=== PATIENT | male | born 1960 | race Caucasian/White ===

== ENCOUNTER 2017-12-18 01:36 | Emergency (ER) | payer SELFPAY ==
[~2017-12-18] VITALS: Ht 182.9 cm; Wt 73.9 kg
[~2017-12-18 01:36] MED LIST: ACDPT PO; ASPI-892 PO; IBUP200C PO; MTF500T PO; OXYM30MI NS
[2017-12-18 01:45] VITALS: BP 150/92
[2017-12-18] MEDS ORDERED: GABA-488 PO (01:51)
[2017-12-18] MEDS ORDERED: PREG25CA PO (01:51)
[2017-12-18] MEDS ORDERED: AMOX400S9 PO (01:51)
== END 2017-12-18 02:28 | disposition left against medical advice (07) ==
LOC: EDUNIT# 01:36 → ER 01:41
DX: K08.89 Other specified disorders of teeth and supporting structures (principal)
CPT/HCPCS: 99282

== ENCOUNTER → 2018-04-04 | Outpatient (CLI) | payer SELFPAY ==
[~2018-04-04] MED LIST changes: +AMOX400S9 PO; +CATHETER FLUSH 10 ML SYR IV PRN; +GABA-488 PO; +IOHEXOL 350 MG/ML 150 ML (OMNIPAQUE 350) VIAL IV ONE; +NS 250 ML (IVPB) BAG IV ONE; +PREG25CA PO
--- NOTE | 2018-04-05 18:56 | Diagnostic Imaging Report ---
PROCEDURE: CT angiography of the chest with and without contrast. TECHNIQUE: Noncontrast CT of the chest was performed. Subsequently, after intravenous administration of contrast, thin section axial CT angiography of the chest was performed. 2D MIP reconstructions were made. INDICATION: Difficulty swallowing and shortness of breath. COMPARISON: Comparison is made with a chest radiograph from December 22, 2014. FINDINGS: There is adequate opacification of the pulmonary arteries for diagnostic evaluation. There are no filling defects within the pulmonary arteries to suggest embolism. The main pulmonary artery is normal in size. There are mild atherosclerotic calcifications present within the aorta. There is no dissection. Ascending aorta demonstrates ectasia and measures up to 4.3 cm. The arch and descending thoracic aorta are normal in caliber. Heart size appears normal. There is no pericardial effusion. There are no focal pulmonary infiltrates. There is no alveolar consolidation. There is no effusion or pneumothorax. No pulmonary nodule or mass demonstrated. There are no abnormally enlarged mediastinal or hilar lymph nodes. The axillae are unremarkable. The esophagus demonstrates no focal abnormality. The visualized portion of the upper abdomen demonstrates no acute process. There are degenerative endplate changes present within the thoracic spine, but there are no findings of an acute or suspicious osseous abnormality. IMPRESSION: 1. No CT angiographic evidence of pulmonary embolism. 2. Ascending aortic ectasia measuring up to 4.3 cm in diameter. There is no dissection. Mild aortic atherosclerosis noted. 3. Heart size appears normal. 4. Lungs appear clear. 5. No acute upper abdominal abnormality. 6. Thoracic degenerative endplate changes without acute or suspicious osseous abnormality. 7. The esophagus appears unremarkable by CT. Dictated by: Dictated on workstation # [id number]
== END ==
LOC: RAD 15:03
PROVIDERS: ATTEND Pediatrics
DX: I77.810 Thoracic aortic ectasia (principal); I70.0 Atherosclerosis of aorta; M47.814 Spondylosis without myelopathy or radiculopathy, thoracic region; R13.10 Dysphagia, unspecified
CPT/HCPCS: 71275

== ENCOUNTER 2019-08-05 11:06 | Emergency (ER) | payer SELFPAY ==
[~2019-08-05] VITALS: Ht 182 cm; Wt 70.0 kg
[~2019-08-05 11:06] MED LIST changes: -CATHETER FLUSH 10 ML SYR IV PRN; -IOHEXOL 350 MG/ML 150 ML (OMNIPAQUE 350) VIAL IV ONE; -NS 250 ML (IVPB) BAG IV ONE
[2019-08-05] MEDS ORDERED: NS IV 1000 ML 1,000 ML ONE (11:12)
[2019-08-05] MEDS ORDERED: KETOROLAC 30 MG/ML VIAL ONE (11:12)
[2019-08-05] MEDS ORDERED: HYDR-4226 PO (11:24)
[2019-08-05] MEDS ORDERED: IBUP-1780 PO (11:24)
[2019-08-05] MEDS ORDERED: TMSL.4C PO (11:24)
--- NOTE | 2019-08-05 11:24 | ED GU-Male ---
General Stated Complaint: ABD PAIN Source: patient Exam Limitations: no limitations History of Present Illness Date Seen by Provider: Aug 05, 2019 Time Seen by Provider: 11:20 Initial Comments To ER with reports of left lower abdominal pain sudden in onset sharp in nature that radiates into the testicle. This occurred just prior to arrival. No history of this. He has the urge to urinate but unable to do so. No vomiting no fever no chills. Pain is varying in intensity, currently 7 out of 10 but at one point it was 10 out of 10. Timing/Duration: constant Severity/Quality: moderate, sharp Location: LLQ, groin, scrotal Radiation: none Activities at Onset: none Prior Genitourinary Problems: none Associated Symptoms: dysuria Allergies and Home Medications Allergies Coded Allergies: No Known Drug Allergies (Unverified , 12/22/14) Home Medications Acetaminophen/Diphenhydramine 1 Ea Tab, 1 TAB PO HS, (Reported) Aspirin 81 Mg Tabec, 81 MG PO DAILY, (Reported) Hydrocodone/Acetaminophen 1 Each Tablet, 1 TAB PO Q4-6HR Prescribed by: IZAIAH WAY on 08/05/19 1124 Ibuprofen 200 Mg Capsule, 200 MG PO BID, (Reported) Ibuprofen 800 Mg Tablet, 800 MG PO Q8H PRN for PAIN Prescribed by: IZAIAH WAY on 08/05/19 1124 Metformin Hcl 500 Mg Tablet, 1 EACH PO BID WITH MEALS Prescribed by: RYANN ROJAS on 12/23/14 1251 Tamsulosin HCl 0.4 Mg Cap, 0.4 MG PO DAILY Prescribed by: IZAIAH WAY on 08/05/19 1124 Patient Home Medication List Home Medication List Reviewed: Yes Review of Systems Review of Systems Constitutional: see HPI EENTM: see HPI Respiratory: no symptoms reported Cardiovascular: no symptoms reported Genitourinary: see HPI Musculoskeletal: no symptoms reported Skin: no symptoms reported Psychiatric/Neurological: No Symptoms Reported Past Qoxiqdw-Dcnvop-Rljujq Hx Patient Social History Type Used: Cigarettes 2nd Hand Smoke Exposure: Yes Recent Foreign Travel: No Contact w/Someone Who Travel: No Recent Hopitalizations: No Immunizations Up To Date Tetanus Booster (TDap): Unknown Seasonal Allergies Seasonal Allergies: No Past Medical History Surgeries: No Respiratory: No Cardiac: No Neurological: No Reproductive Disorders: Yes (ERECTILE DYSFUNCTION) Genitourinary: No Gastrointestinal: No Musculoskeletal: Yes Chronic Back Pain Endocrine: Yes Diabetes, Non-Insulin dep HEENT: No Cancer: No Psychosocial: No Integumentary: No Family Medical History Cardiovascular disease Diabetes mellitus Myocardial infarction Respiratory disorder CAD Under 55 Years Old Physical Exam Vital Signs Vital Signs - First Documented 08/05/19 11:08 Temp 36.3 Pulse 90 Resp 18 B/P (MAP) 142/98 (113) Pulse Ox 98 Capillary Refill : Height, Weight, BMI Height: 6'0" Weight: 163lbs. 0oz. [id number]; 22.87 BMI Method:Stated General Appearance: WD/WN, mild distress HEENT: PERRL/EOMI, normal ENT inspection Neck: non-tender, full range of motion Respiratory: no respiratory distress, no accessory muscle use Gastrointestinal: normal bowel sounds, non tender, soft Extremities: normal range of motion, non-tender Neurologic/Psychiatric: alert, normal mood/affect Skin: normal color, warm/dry Progress/Results/Core Measures Suspected Sepsis SIRS Temperature: Pulse: Respiratory Rate: Laboratory Tests 08/05/19 11:10: White Blood Count 8.0 Blood Pressure / Mean: Laboratory Tests 08/05/19 11:10: Creatinine 0.85, Platelet Count 289 Results/Orders Lab Results Laboratory Tests Test 08/05/19 11:10 Range/Units White Blood Count 8.0 4.3-11.0 10^3/uL Red Blood Count 4.83 4.35-5.85 10^6/uL Hemoglobin 14.6 13.3-17.7 G/DL Hematocrit 44 40-54 % Mean Corpuscular Volume 91 80-99 FL Mean Corpuscular Hemoglobin 30 25-34 PG Mean Corpuscular Hemoglobin Concent 33 32-36 G/DL Red Cell Distribution Width 12.7 10.0-14.5 % Platelet Count 289 130-400 10^3/uL Mean Platelet Volume 9.5 7.4-10.4 FL Neutrophils (%) (Auto) 61 42-75 % Lymphocytes (%) (Auto) 26 12-44 % Monocytes (%) (Auto) 11 0-12 % Eosinophils (%) (Auto) 2 0-10 % Basophils (%) (Auto) 0 0-10 % Neutrophils # (Auto) 4.8 1.8-7.8 X 10^3 Lymphocytes # (Auto) 2.1 1.0-4.0 X 10^3 Monocytes # (Auto) 0.9 0.0-1.0 X 10^3 Eosinophils # (Auto) 0.2 0.0-0.3 10^3/uL Basophils # (Auto) 0.0 0.0-0.1 10^3/uL Sodium Level 140 135-145 MMOL/L Potassium Level 4.2 3.6-5.0 MMOL/L Chloride Level 102 98-107 MMOL/L Carbon Dioxide Level 22 21-32 MMOL/L Anion Gap 16 H 5-14 MMOL/L Blood Urea Nitrogen 9 7-18 MG/DL Creatinine 0.85 0.60-1.30 MG/DL Estimat Glomerular Filtration Rate > 60 BUN/Creatinine Ratio 11 Glucose Level 139 H 70-105 MG/DL Calcium Level 10.1 8.5-10.1 MG/DL My Orders Orders - IZAIAH WAY APRN Cbc With Automated Diff (08/05/19 11:19) Basic Metabolic Panel (08/05/19 11:19) Ua Culture If Indicated (08/05/19 11:19) Ed Iv/Invasive Line Start (08/05/19 11:19) Ct Abd/Pelvis Wo(Kidney Stone) (08/05/19 11:19) Abdomen/Kub 1view (08/05/19 11:24) Medications Given in ED Current Medications Medications Dose Ordered Sig/William Route Start Time Stop Time Status Last Admin Dose Admin Ketorolac Tromethamine 30 mg STK-MED ONCE .ROUTE 08/05/19 11:12 08/05/19 11:16 DC 08/05/19 11:19 30 MG Sodium Chloride 1,000 ml @ ud STK-MED ONCE .ROUTE 08/05/19 11:12 08/05/19 11:17 DC 08/05/19 11:18 1,000 MLS/HR Vital Signs/I&O 08/05/19 11:08 Temp 36.3 Pulse 90 Resp 18 B/P (MAP) 142/98 (113) Pulse Ox 98 Capillary Refill : Departure Communication (Admissions) NAME: J[facility] REC#: [id number] PT STATUS: REG ER : 1960 PHYSICIAN: IZAIAH WAY APRN ADMIT DATE: 08/05/19/ER Draft Date of Exam:08/05/19 CT ABD/PELVIS WO(KIDNEY STONE) EXAMINATION: CT Abdomen Pelvis without contrast. TECHNIQUE: Multiple contiguous axial images were obtained through the abdomen and pelvis without the use of intravenous contrast. All CT scans use one or more of the following dose optimizing techniques: automated exposure control, MA and/or KvP adjustment based on a patient size and exam type, or iterative reconstruction. HISTORY: Left lower quadrant pain. COMPARISON: None available. FINDINGS: Limited views of the lower thorax show coronary artery calcifications. The liver is normal without focal lesion. There is no biliary ductal dilation. Gallbladder is normal. Pancreas is normal. Spleen is normal. Adrenal glands are normal. The kidneys are normal. There is no hydronephrosis. There is a 3 mm calcification dependently in the urinary bladder which may represent a recently passed stone. No renal or ureteral stones are seen. There are no dilated loops of large or small bowel. No obstruction or inflammation. No free fluid or air. No abdominal or pelvic lymphadenopathy. Aorta is normal in caliber without aneurysm. There are no suspicious osseous lesions. IMPRESSION: 1. Calcification dependently in the urinary bladder measuring 3 mm which likely represents a recently passed stone. No renal or ureteral calculi are present. Dictated on workstation # [id number] Dict: 08/05/19 1141 Trans: 08/05/19 1145 [facility] [id number] Interpreted by: SUSANNE CISSE MD Electronically signed by: Impression Primary Impression: Left ureteral stone Disposition: HOME, SELF-CARE Condition: Stable Departure-Patient Inst. Decision time for Depature: 11:22 Ref[place]: [facility] [place] [facility] [place] Primary Care Physician JESSIKA DOBBS MD Patient Instructions: How to Strain Your Urine, Kidney Stones (DC) Add. Discharge Instructions: 1. If you fail to pass this within the next few days, call Dr. Dobbs on Wednesday to make an appointment to be seen. He may need to intervene to help you pass the stone. In the meantime medication as directed, return to ER for intolerable pain, high fevers or other concerns. Scripts Tamsulosin HCl (Flomax) 0.4 Mg Cap 0.4 MG PO DAILY, #10 CAP Prov: IZAIAH WAY HAT CUTTER 08/05/19 Hydrocodone/Acetaminophen ([place] 5-325 Tablet) 1 Each Tablet 1 TAB PO Q4-6HR for Pain MDD 10 TABS for 7 Days, #20 TAB Prov: IZAIAH WAY APRN 08/05/19 Ibuprofen (Ibuprofen) 800 Mg Tablet 800 MG PO Q8H PRN for PAIN, #30 TAB 0 Refills Prov: IZAIAH WAY APRN 08/05/[address] APRN Aug 05, 2019 11:24
[2019-08-05 11:25] LABS: BASOPHILS % (AUTO) 0 % (0-10); EOSINOPHILS # (AUTO) 0.2 10^3/uL (0.0-0.3); EOSINOPHILS % (AUTO) 2 % (0-10); HEMATOCRIT 44 % (40-54); HEMOGLOBIN 14.6 G/DL (13.3-17.7); LYMPHOCYTES # (AUTO) 2.1 X 10^3 (1.0-4.0); LYMPHOCYTES % (AUTO) 26 % (12-44); MEAN CORPUSCULAR HEMOGLOBIN 30 PG (25-34); MEAN CORPUSCULAR HGB CONC 33 G/DL (32-36); MEAN CORPUSCULAR VOLUME 91 FL (80-99); MEAN PLATELET VOLUME 9.5 FL (7.4-10.4); MONOCYTES # (AUTO) 0.9 X 10^3 (0.0-1.0); MONOCYTES % (AUTO) 11 % (0-12); NEUTROPHILS # (AUTO) 4.8 X 10^3 (1.8-7.8); NEUTROPHILS % (AUTO) 61 % (42-75); PLATELET COUNT 289 10^3/uL (130-400); RED CELL DISTRIBUTION WIDTH 12.7 % (10.0-14.5)
[2019-08-05 11:38] LABS: BUN/CREATININE RATIO 11; CALCIUM 10.1 MG/DL (8.5-10.1); CARBON DIOXIDE 22 MMOL/L (21-32); CHLORIDE 102 MMOL/L (98-107); CREATININE SERUM 0.85 MG/DL (0.60-1.30); GFR ESTIMATED > 60; GLUCOSE 139 MG/DL (70-105); POTASSIUM 4.2 MMOL/L (3.6-5.0); SODIUM 140 MMOL/L (135-145)
--- NOTE | 2019-08-05 11:42 | Diagnostic Imaging Report ---
INDICATION: Left lower quadrant pain. Time of exam 11:38 AM Bowel gas pattern is unremarkable. No definite free air or pathological secretions are seen. IMPRESSION: No acute feature identified. Dictated by: Dictated on workstation # [id number]
--- NOTE | 2019-08-05 11:45 | Diagnostic Imaging Report ---
EXAMINATION: CT Abdomen Pelvis without contrast. TECHNIQUE: Multiple contiguous axial images were obtained through the abdomen and pelvis without the use of intravenous contrast. All CT scans use one or more of the following dose optimizing techniques: automated exposure control, MA and/or KvP adjustment based on a patient size and exam type, or iterative reconstruction. HISTORY: Left lower quadrant pain. COMPARISON: None available. FINDINGS: Limited views of the lower thorax show coronary artery calcifications. The liver is normal without focal lesion. There is no biliary ductal dilation. Gallbladder is normal. Pancreas is normal. Spleen is normal. Adrenal glands are normal. The kidneys are normal. There is no hydronephrosis. There is a 3 mm calcification dependently in the urinary bladder which may represent a recently passed stone. No renal or ureteral stones are seen. There are no dilated loops of large or small bowel. No obstruction or inflammation. No free fluid or air. No abdominal or pelvic lymphadenopathy. Aorta is normal in caliber without aneurysm. There are no suspicious osseous lesions. IMPRESSION: 1. Calcification dependently in the urinary bladder measuring 3 mm which likely represents a recently passed stone. No renal or ureteral calculi are present. Dictated by: Dictated on workstation # [id number]
[2019-08-05 12:00] LABS: BILIRUBIN,URINE NEGATIVE (NEGATIVE); CLARITY,URINE SL CLOUDY; COLOR,URINE DARK YELLOW; GLUCOSE, URINE (UA) NEGATIVE (NEGATIVE); KETONES,URINE NEGATIVE (NEGATIVE); LEUKOCYTE ESTERASE ,URINE NEGATIVE (NEGATIVE); NITRITE,URINE NEGATIVE (NEGATIVE); PH,URINE 5.5 (5-9); PROTEIN,URINE TRACE (NEGATIVE)
[2019-08-05 12:09] VITALS: BP 142/98
[2019-08-05 12:13] LABS: BACTERIA,URINE TRACE /HPF; WBC,URINE RARE /HPF
[2019-08-05 12:14] LABS: SQUAMOUS EPITHELIAL CELL,UR 0-2 /HPF
== END 2019-08-05 12:09 | disposition home or self-care (01) ==
LOC: EDUNIT# 11:06 → ER 11:07
DX: N13.2 Hydronephrosis with renal and ureteral calculous obstruction (principal); E11.9 Type 2 diabetes mellitus without complications; Z79.82 Long term (current) use of aspirin; Z79.84 Long term (current) use of oral hypoglycemic drugs; Z77.22 Contact with and (suspected) exposure to environmental tobacco smoke (acute) (chronic); Z82.49 Family history of ischemic heart disease and other diseases of the circulatory system
CPT/HCPCS: 36415; 74018; 74176; 80048; 81000; 85025

== ENCOUNTER 2022-06-25 12:43 | Emergency (ER) | payer OTHER ==
[~2022-06-25] VITALS: Ht 182 cm; Wt 73.0 kg
[~2022-06-25 12:43] MED LIST changes: +HYDR-4226 PO; +IBUP-1780 PO; +TMSL.4C PO
[2022-06-25] MEDS ORDERED: TETANUS,DIPTH,PERTUSS P/F (BOOSTRIX) 0.5 ML VIAL IM ONE (13:00)
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
[2022-06-25] MEDS ORDERED: fentaNYL INJ 100 MCG/2 ML AMP IM ONE (13:15)
[2022-06-25] MEDS ORDERED: ACHD5005 PO (13:29)
[2022-06-25] MEDS ORDERED: ACETAMINOPHEN 500 MG TAB (TYLENOL) PO ONE (13:30)
[2022-06-25] MEDS ORDERED: BACITRACIN OINTMENT 28 GM TUBE TOP SCH (13:30)
[2022-06-25 13:50] VITALS: BP 139/90
== END 2022-06-25 13:53 | disposition home or self-care (01) ==
LOC: EDUNIT# 12:43 → ER 12:46
DX: T23.242A Burn of second degree of multiple left fingers (nail), including thumb, initial encounter (principal); T31.0 Burns involving less than 10% of body surface; E11.9 Type 2 diabetes mellitus without complications; F17.210 Nicotine dependence, cigarettes, uncomplicated; Z79.84 Long term (current) use of oral hypoglycemic drugs; Z23 Encounter for immunization
CPT/HCPCS: 90715; 99284

== ENCOUNTER 2022-09-16 06:06 | Outpatient (CLI) | payer OTHER ==
[~2022-09-16] VITALS: Ht 182.9 cm; Wt 72.6 kg
[~2022-09-16 06:06] MED LIST changes: +ACHD5005 PO
[2022-09-16] MEDS ORDERED: CHOL1LIQ MC (12:28)
[2022-09-16] MEDS ORDERED: ATOR10TA PO (12:28)
== END 2022-09-16 12:36 ==
LOC: PREOP 06:06
PROVIDERS: ATTEND Surgery
DX: Z01.818 Encounter for other preprocedural examination (principal)

== ENCOUNTER 2022-09-29 09:26 | Day surgery (SDC) | payer OTHER ==
[~2022-09-29] VITALS: Ht 182.9 cm; Wt 72.6 kg
[~2022-09-29 09:26] MED LIST changes: +ATOR10TA PO; +CHOL1LIQ MC
[2022-09-29] MEDS ORDERED: LACTATED RINGERS 1,000 ML IV STA (09:29)
[2022-09-29 09:47] VITALS: BP 134/93
--- NOTE | 2022-09-29 10:27 | Discharge Inst-Simple/Standard ---
Discharge Inst-Standard Patient Instructions/Follow Up Plan of Care/Instructions/FU: Dayne in 10yrs unless family history of colon cancer then 5yrs. If any issues be seen at that time Activity as Tolerated: Yes Discharge Diet: Regular Diet (high fiber) ABRIL VIVEROS DO Sep 29, 2022 10:27
[2022-09-29] MEDS ORDERED: PROPOFOL INJECTION 50 ML IV ONE (10:28)
--- NOTE | 2022-09-29 10:28 | Progress Note-Post Operative ---
Post-Operative Progess Note Surgeon (s)/Residential Sales Executive (s) Surgeon ABRIL VIVEROS DO Residential Sales Executive: na Pre-Operative Diagnosis screening colonoscopy Post-Operative Diagnosis Diverticulosis Procedure & Operative Findings Date of Procedure 09/29/22 Procedure Performed/Findings Colonoscopy Anesthesia Type per wallpaper hanger Estimated Blood Loss Estimated blood loss (mL): none Specimens/Packing Specimens Removed none ABRIL VIVEROS DO Sep 29, 2022 10:28
[2022-09-29 10:31] VITALS: BP 103/65
[2022-09-29 10:36] VITALS: BP 108/70
[2022-09-29 10:41] VITALS: BP 118/1
[2022-09-29 10:45] VITALS: BP 111/73
[2022-09-29 11:10] VITALS: BP 111/73
--- NOTE | 2022-09-29 12:16 | Anesthesia-General Post-Op ---
MAC Patient Condition Mental Status/LOC: Same as Preop Cardiovascular: Satisfactory Nausea/Vomiting: Absent Respiratory: Satisfactory Pain: Controlled Complications: Absent Post Op Complications Complications None Follow Up Care/Instructions Patient Instructions None needed. Anesthesiology Discharge Order Discharge Order Patient is doing well, no complaints, stable vital signs, no apparent adverse anesthesia problems. No complications reported per nursing. ALEXANDRE MATIAS CRNA Sep 29, 2022 12:16
--- NOTE | 2022-09-29 15:34 | OPERATIVE REPORT ---
DATE OF SERVICE: 09/29/2022 PREOPERATIVE DIAGNOSIS: Screening colonoscopy. POSTOPERATIVE DIAGNOSIS: Diverticulosis. PROCEDURE: Colonoscopy. SURGEON: Abril Oscar DO ANESTHESIA: Per HOGSHEAD INSPECTOR. ESTIMATED BLOOD LOSS: None. COMPLICATIONS: None. INDICATIONS: The patient is a 62-year-old male, needing screening colonoscopy. He understands risks and benefits of procedure and wished to proceed. Consent was signed and on chart. DESCRIPTION OF PROCEDURE: The patient was taken to endoscopy suite, placed in left lateral recumbent position. Timeout was performed. Digital rectal exam was performed. No palpable polyps, masses or ulcerations. Scope was inserted in the rectum, advanced all the way to the cecum with minimal difficulty. Prep was adequate. Scope was retracted back. No polyps, masses or ulcerations in the cecum, ascending, transverse, descending and sigmoid colon. Some minimal diverticulosis present in the sigmoid colon. Once in the rectum, scope was retroflexed noting no other pathology. Scope was returned to its normal position, slowly withdrawn until completely removed. The patient tolerated the procedure well without complications, taken to recovery room in stable condition. RECOMMENDATIONS: The patient will need repeat colonoscopy in 10 years unless family history of colon cancer, which will then be 5 years. Any issues before that, be seen at that time. Job ID: [id number] DocumentID: [id number] Dictated Date: 09/29/2022 10:28:52 Radio Station Manager Date: 09/29/2022 15:32:00 Dictated By: ABRIL OSCAR DO
== END 2022-09-29 11:20 | disposition home or self-care (01) ==
LOC: ENDO 09:26
PROVIDERS: ATTEND Surgery
DX: Z12.11 Encounter for screening for malignant neoplasm of colon (principal); K57.30 Diverticulosis of large intestine without perforation or abscess without bleeding; E11.9 Type 2 diabetes mellitus without complications; Z79.84 Long term (current) use of oral hypoglycemic drugs; F17.210 Nicotine dependence, cigarettes, uncomplicated
CPT/HCPCS: 82947

== ENCOUNTER 2022-12-21 05:29 | Outpatient (CLI) | payer OTHER ==
[~2022-12-21] VITALS: Ht 182.9 cm; Wt 69.0 kg
[2022-12-21] MEDS ORDERED: SILD100T67 PO (15:28)
== END 2022-12-21 15:30 | disposition home or self-care (01) ==
LOC: PREOP 05:29
PROVIDERS: ATTEND Surgery
DX: Z01.818 Encounter for other preprocedural examination (principal)

== ENCOUNTER 2022-12-24 07:57 | Day surgery (SDC) | payer OTHER ==
[2022-12-24] VITALS (8 sets, daily range): BP systolic 93–133; BP diastolic 61–77
[~2022-12-24] VITALS: Ht 182 cm; Wt 69.0 kg
[~2022-12-24 07:57] MED LIST changes: +SILD100T67 PO
[2022-12-24] MEDS ORDERED: BUP/EPI 0.25% 1:200,000 (MARCAINE) 30 ML VIAL ONE (08:37)
[2022-12-24] MEDS ORDERED: LIDOCAINE PF 2% 5 ML (XYLOCAINE) VIAL ONE (08:43)
[2022-12-24] MEDS ORDERED: ONDANSETRON 4 MG/2 ML (SDV) Z0FRAN ONE (08:43)
[2022-12-24] MEDS ORDERED: proPOfol 200 MG/20 ML (DIPRIVAN) VIAL IV ONE (08:43)
[2022-12-24] MEDS ORDERED: fentaNYL INJ 100 MCG/2 ML AMP ONE (08:43)
[2022-12-24] MEDS ORDERED: MIDAZOLAM 2 MG/2 ML (VERSED) VIAL ONE (08:43)
[2022-12-24] MEDS ORDERED: LACTATED RINGERS 1,000 ML IV PRN (08:45)
[2022-12-24] MEDS ORDERED: ceFAZolin INJECTION 2,000 MG in NS (IVPB) 50 ML IV ONE (08:45)
[2022-12-24] MEDS ORDERED: BUP/EPI 0.25% 1:200,000 (MARCAINE) 30 ML VIAL INJ ONE (09:40)
[2022-12-24] MEDS ORDERED: SEVOFLURANE (ULTANE) 15 ML INHAL SOLN ONE (09:46)
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
[2022-12-24] MEDS ORDERED: morphine INJ 10 MG/ML 1ML (SYR OR VIAL) IVP ONE (10:00)
[2022-12-24] MEDS ORDERED: ONDANSETRON 4 MG/2 ML (SDV) Z0FRAN IVP PRN (10:00)
--- NOTE | 2022-12-24 10:07 | Discharge Inst-Simple/Standard ---
Discharge Inst-Standard Patient Instructions/Follow Up Plan of Care/Instructions/FU: 2 weeks Dayne Activity as Tolerated: Yes Discharge Diet: Regular Diet Other Inst to Patient Follow up Appt: Make appointment for 2 week. Instructions: No lifting greater than 10 pounds. No strenuous activity. May shower in 24 hours, no tub bath or soaking. Use incentive spirometer at home as directed. No Smoking Skin/Wound Care: Keep area clean and dry. Shower after bowel movements. Symptoms to Report: Appetite Changes, Extremity Discoloration, Numbness/Tingling, Swelling Increased, Bleeding Excessive, Eyesight Changes, Pain Increased, Urine Color Change, Constipation(Persistent), Fever over 101 degree F, Pain/Pressure in chest, Urinating Difficulty, Cough Up/Vomit Blood, Heart Beat Irreg/Pounding, Pain/Pressure in jaw, Vaginal Bleeding Increase, Cramps in feet or legs, Lightheadedness, Pain/Pressure in shoulder, Diarrhea(Persistent), Memory Changes Suddenly, Questions/Concerns, Weight gain consecutive days, Dizziness/Fainting, Nausea/Vomiting, Shortness of Breath, Weight gain over 2 pounds If questions or concerns contact your physician Or seek help at emergency department. ABRIL VIVEROS DO Dec 24, 2022 10:07
--- NOTE | 2022-12-24 12:31 | Anesthesia-General Post-Op ---
General Patient Condition Mental Status/LOC: Same as Preop Cardiovascular: Satisfactory Nausea/Vomiting: Absent Respiratory: Satisfactory Pain: Controlled Complications: Absent Post Op Complications Complications None Follow Up Care/Instructions Patient Instructions None needed. Anesthesia/Patient Condition Patient Condition Patient is doing well, no complaints, stable vital signs, no apparent adverse anesthesia problems. No complications reported per nursing. BELINDA CERVANTES CRNA Dec 24, 2022 12:31
--- NOTE | 2022-12-25 03:52 | OPERATIVE REPORT ---
DATE OF SERVICE: 12/24/2022 PREOPERATIVE DIAGNOSIS: Anal skin tags. POSTOPERATIVE DIAGNOSIS: Anal skin tags. PROCEDURE: Excision of anal skin tags x4. SURGEON: Abril Oscar DO ANESTHESIA: General. ESTIMATED BLOOD LOSS: Minimal. COMPLICATIONS: None. INDICATIONS: The patient is a 62-year-old male with some anal skin tags. He understands risks and benefits of procedure and wishes to proceed. Consent was signed and on chart. DESCRIPTION OF PROCEDURE: The patient was taken to the operating suite where he was prepped and draped in sterile fashion. Timeout was performed. Pudendal block was performed on both right and left sides. Four skin tags were present, which were then grasped, elevated and cautery was used to excise these tags. Hemostasis was achieved. The area was washed and dried and sterile bandage was applied. The tags were sent for specimen. The patient tolerated the procedure well without any complications, taken to recovery in stable condition. Job ID: [id number] DocumentID: [id number] Dictated Date: 12/24/2022 23:15:48 [employer]airer [employer] Date: 12/25/2022 03:51:00 Dictated By: ABRIL OSCAR DO
== END 2022-12-24 11:20 | disposition home or self-care (01) ==
LOC: SDC 07:57
PROVIDERS: ATTEND Surgery
DX: K64.4 Residual hemorrhoidal skin tags (principal); F17.210 Nicotine dependence, cigarettes, uncomplicated; E11.9 Type 2 diabetes mellitus without complications; Z79.84 Long term (current) use of oral hypoglycemic drugs
CPT/HCPCS: 82947; 87081

== ENCOUNTER 2023-01-29 16:56 | Emergency (ER) | payer OTHER ==
[~2023-01-29] VITALS: Ht 182.9 cm; Wt 72.6 kg
[2023-01-29] MEDS ORDERED: LACTATED RINGERS 1,000 ML IV ONE (17:30)
[2023-01-29 17:31] LABS: BASOPHILS # (AUTO) 0.1 10^3/uL (0.0-0.1); BASOPHILS % (AUTO) 1 % (0-10); EOSINOPHILS % (AUTO) 0 % (0-10); HEMATOCRIT 38 % (40-54); HEMOGLOBIN 13.4 g/dL (13.3-17.7); LYMPHOCYTES % (AUTO) 10 % (12-44); MEAN CORPUSCULAR HEMOGLOBIN 32 pg (25-34); MEAN CORPUSCULAR HGB CONC 35 g/dL (32-36); MEAN CORPUSCULAR VOLUME 92 fL (80-99); MONOCYTES # (AUTO) 0.6 10^3/uL (0.0-1.0); MONOCYTES % (AUTO) 6 % (0-12); NEUTROPHILS # (AUTO) 8.6 10^3/uL (1.8-7.8); NEUTROPHILS % (AUTO) 83 % (42-75); PLATELET COUNT 187 10^3/uL (130-400); WHITE BLOOD COUNT 10.3 10^3/uL (4.3-11.0)
--- NOTE | 2023-01-29 17:37 | ED General ---
General Chief Complaint: Exposure Stated Complaint: FATIGUE/HEADACHE/WEAKNESS Nursing Triage Note: PT AMBULATE TO ROOM 07 WITHOUT DIFFICULTY WITH C/O BEING "EXHAUSTED". PT REPORTS BEING OUTSIDE MOWING GRASS ALL DAY YESTERDAY AND BEING OUTSIDE IN THE HEAT ALL DAY TODAY. PT DENIES SOB, CP, ABD PAIN, N/V/D, DIZZYNESS. PT STATES HIS ONLY C/O IS BEING "WORE OUT". Source of Information: Patient Exam Limitations: No Limitations (BERNARDINO REESE MD) History of Present Illness Date Seen by Provider: Jan 29, 2023 Time Seen by Provider: 17:20 Initial Comments Patient is a 62-year-old male history of type 2 diabetes who presents to the emergency room with a chief complaint of extreme fatigue, he feels a little lightheaded and like he may "pass out". He states he was outside all day in the heat yesterday doing lawn maintenance. He states he has been drinking water and a lot of Gatorade. He was outside until noon today because he did not feel good so he went home early. He complains of a headache currently that he rates at an "8". No chest pain, shortness of breath. No nausea, vomiting, diarrhea. No black or bloody stools. He states his urine is a rather dark yellow. He denies any episodes of confusion. No significant body aches. Timing/Duration: 12-24 Hours Severity: Moderate Associated Systoms: Headaches, Malaise, Weakness (BERNARDINO REESE MD) Allergies and Home Medications Allergies Coded Allergies: No Known Drug Allergies (Unverified , 12/21/22) Patient Home Medication List Home Medication List Reviewed: Yes (BERNARDINO REESE MD) Cholecalciferol (Vitamin D3) (Vitamin D3) 1 Million Unit/Gram Liquid, 1 ML MC, (Reported) Entered as Reported by: CHRISTI RUTHERFORD on 09/16/22 1228 Gabapentin (Gabapentin) 300 Mg Capsule, 300 MG PO TID, (Reported) Entered as Reported by: CHRIS HALL on 12/18/17 0151 Ibuprofen (Ibuprofen) 800 Mg Tablet, 800 MG PO Q8H PRN for PAIN Prescribed by: IZAIAH WAY on 08/05/19 1124 Metformin Hcl (Metformin 500 Mg) 500 Mg Tablet, 1 EACH PO BID WITH MEALS Prescribed by: RYANN ROJAS on 12/23/14 1251 Sildenafil Citrate (Sildenafil Citrate) 100 Mg Tablet, 100 MG PO UD, (Reported) Entered as Reported by: EMMETT SETH on 12/21/22 1528 Review of Systems Review of Systems Constitutional: see HPI, malaise, weakness EENTM: no symptoms reported Respiratory: no symptoms reported Cardiovascular: no symptoms reported Gastrointestinal: no symptoms reported Genitourinary: no symptoms reported Musculoskeletal: no symptoms reported Skin: no symptoms reported Psychiatric/Neurological: Other (fatigue) (BERNARDINO REESE MD) Past Dferhkq-Bkkven-Ccsmuj Hx Patient Social History Tobacco Use?: Yes Tobacco type used: Cigarettes Smoking Status: Heavy Tobacco Smoker Smokeless Tobacco Frequency: Never a User Use of E-Cig and/or Vaping dev: No Use of E-Cig and/or Vaping Christopher: Never a User Substance use?: No Alcohol Use?: Yes Alcohol Frequency: Rarely Pt feels they are or have been: No (BERNARDINO REESE MD) Immunizations Up To Date Tetanus Booster (TDap): Unknown First/Initial COVID19 Vaccinat: 2020 Second COVID19 Vaccination Ladarius: 2020 Third COVID19 Vaccination Date: 2020 (BERNARDINO REESE MD) Seasonal Allergies Seasonal Allergies: No (BERNARDINO REESE MD) Past Medical History Surgery/Hospitalization HX: DIABETIC TYPE II Surgeries: Yes (COLONOSCOPY) Respiratory: No Currently Using CPAP: No Currently Using BIPAP: No Cardiac: Yes High Cholesterol Neurological: No Reproductive Disorders: Yes (ERECTILE DYSFUNCTION) Genitourinary: No Gastrointestinal: No Musculoskeletal: Yes Chronic Back Pain Endocrine: Yes Diabetes, Non-Insulin dep HEENT: No Cancer: No Psychosocial: No Integumentary: No Blood Disorders: No (BERNARDINO REESE MD) Family Medical History Cardiovascular disease Diabetes mellitus Myocardial infarction Respiratory disorder CAD Under 55 Years Old (BERNARDINO REESE MD) 01/29/23--UDS + FOR THC AND OPIATES (IAN LARRY DO) Physical Exam Vital Signs Vital Signs - First Documented 01/29/23 17:07 Temp 38.7 Pulse 82 Resp 17 B/P (MAP) 139/77 (97) O2 Delivery Room Air (IAN LARRY DO) Vital Signs Capillary Refill : Less Than 3 Seconds (BERNARDINO REESE MD) Height, Weight, BMI Height: 6'0" Weight: 163lbs. 0oz. 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, 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 Norm as Tested Skin: Normal Color, Warm/Dry (BERNARDINO REESE MD) Progress/Results/Core Measures Suspected Sepsis SIRS Temperature: Pulse: 82 Respiratory Rate: 17 Laboratory Tests 01/29/23 17:10: Blood Pressure 139 /77 Mean: 97 Laboratory Tests 01/29/23 17:10: (BERNARDINO REESE MD) Results/Orders Lab Results Laboratory Tests Test 01/29/23 17:10 01/29/23 17:20 01/29/23 17:28 01/29/23 18:01 Range/Units White Blood Count 10.3 4.3-11.0 10^3/uL Red Blood Count 4.17 L 4.30-5.52 10^6/uL Hemoglobin 13.4 13.3-17.7 g/dL Hematocrit 38 L 40-54 % Mean Corpuscular Volume 92 80-99 fL Mean Corpuscular Hemoglobin 32 25-34 pg Mean Corpuscular Hemoglobin Concent 35 32-36 g/dL Red Cell Distribution Width 11.4 10.0-14.5 % Platelet Count 187 130-400 10^3/uL Mean Platelet Volume 10.0 9.0-12.2 fL Immature Granulocyte % (Auto) 0 % Neutrophils (%) (Auto) 83 H 42-75 % Lymphocytes (%) (Auto) 10 L 12-44 % Monocytes (%) (Auto) 6 0-12 % Eosinophils (%) (Auto) 0 0-10 % Basophils (%) (Auto) 1 0-10 % Neutrophils # (Auto) 8.6 H 1.8-7.8 10^3/uL Lymphocytes # (Auto) 1.0 1.0-4.0 10^3/uL Monocytes # (Auto) 0.6 0.0-1.0 10^3/uL Eosinophils # (Auto) 0.0 0.0-0.3 10^3/uL Basophils # (Auto) 0.1 0.0-0.1 10^3/uL Immature Granulocyte # (Auto) 0.0 0.0-0.1 10^3/uL Sodium Level 131 L 135-145 MMOL/L Potassium Level 4.0 3.6-5.0 MMOL/L Chloride Level 98 98-107 MMOL/L Carbon Dioxide Level 23 21-32 MMOL/L Anion Gap 10 5-14 MMOL/L Blood Urea Nitrogen 15 7-18 MG/DL Creatinine 0.84 0.60-1.30 MG/DL Estimat Glomerular Filtration Rate 100 BUN/Creatinine Ratio 18 Glucose Level 158 H 70-105 MG/DL Calcium Level 9.2 8.5-10.1 MG/DL Corrected Calcium 9.1 8.5-10.1 MG/DL Magnesium Level 1.6 1.6-2.4 MG/DL Total Bilirubin 0.6 0.1-1.0 MG/DL Aspartate Amino Transf (AST/SGOT) 15 5-34 U/L Alanine Aminotransferase (ALT/SGPT) 16 0-55 U/L Alkaline Phosphatase 81 40-136 U/L Total Creatine Kinase 94 30-200 U/L Creatine Kinase MB 1.1 <6.6 NG/ML Myoglobin 48.9 10.0-92.0 NG/ML Total Protein 7.2 6.4-8.2 GM/DL Albumin 4.1 3.2-4.5 GM/DL Serum Alcohol < 10 <10 MG/DL Glucometer 162 H 70-110 MG/DL Urine Color YELLOW Urine Clarity CLEAR Urine pH 8.0 5-9 Urine Specific [place] 1.010 L 1.016-1.022 Urine Protein TRACE H NEGATIVE Urine Glucose (UA) NEGATIVE NEGATIVE Urine Ketones 3+ H NEGATIVE Urine Nitrite NEGATIVE NEGATIVE Urine Bilirubin NEGATIVE NEGATIVE Urine Urobilinogen 0.2 < = 1.0 MG/DL Urine Leukocyte Esterase NEGATIVE NEGATIVE Urine RBC (Auto) NEGATIVE NEGATIVE Urine RBC NONE /HPF Urine WBC NONE /HPF Urine Crystals NONE /LPF Urine Bacteria NEGATIVE /HPF Urine Casts NONE /LPF Urine Mucus NEGATIVE /LPF Urine Culture Indicated NO Urine Opiates Screen POSITIVE H NEGATIVE Urine Oxycodone Screen NEGATIVE NEGATIVE Urine Methadone Screen NEGATIVE NEGATIVE Urine Propoxyphene Screen NEGATIVE NEGATIVE Urine Barbiturates Screen NEGATIVE NEGATIVE Ur Tricyclic Antidepressants Screen NEGATIVE NEGATIVE Urine Phencyclidine Screen NEGATIVE NEGATIVE Urine Amphetamines Screen NEGATIVE NEGATIVE Urine Methamphetamines Screen NEGATIVE NEGATIVE Urine Benzodiazepines Screen NEGATIVE NEGATIVE Urine Cocaine Screen NEGATIVE NEGATIVE Urine Cannabinoids Screen POSITIVE H NEGATIVE (IAN LARRY DO) My Orders Orders - IAN LARRY DO Creatine Kinase (01/29/23 18:12) Creatine Kinase Mb (01/29/23 18:12) Myoglobin Serum (01/29/23 18:12) Drug Screen Stat (Urine) (01/29/23 18:38) (IAN LARRY DO) Medications Given in ED Current Medications Medications Dose Ordered Sig/William Route Start Time Stop Time Status Last Admin Dose Admin Lactated Ringer's 1,000 ml @ 0 mls/hr Q0M ONCE IV 01/29/23 17:30 01/29/23 17:31 DC 01/29/23 17:34 999 MLS/HR (IAN LARRY DO) Vital Signs/I&O 01/29/23 01/29/23 17:07 17:07 Temp 38.7 Pulse 82 Resp 17 B/P (MAP) 139/77 (97) O2 Delivery Room Air Room Air (IAN LARRY DO) Vital Signs/I&O Capillary Refill : Less Than 3 Seconds (MARY ANNBERNARDINO MD) Blood Pressure Mean: 97 Progress Note : Progress Note 1800--ASSUMED CARE OF PT AT SHIFT CHANGE. LAB IS PENDING 1830--PT STATES HE FEELS BETTER AND IS READY TO GO HOME NOW. FLUIDS INFUSED. LABS ARE FAIRLY UNREMARKABLE. NO EVIDENCE OF ACUTE KIDNEY INJURY OR RHABDOMYOLYSIS OR DKA. NO SIGNS OF INFECTION. DISCUSSED TEST RESULTS, ANTICIPATED COURSE, SYMPTOMATIC TREATMENT, NEED FOR FOLLOW UP AND RETURN PRECAUTIONS. (IAN LARRY DO) Departure Impression Primary Impression: Heat exhaustion Additional Impressions: Dehydration NIDDM Marijuana use Opiate use Disposition: HOME, SELF-CARE Condition: Improved Departure-Patient Inst. Decision time for Depature: 18:38 (IAN LARRY DO) Referrals: JOSE CRUZ BALBUENA DO (PCP/Family) Primary Care Physician Patient Instructions: Dehydration, Adult (DC), Heat Illness ED Add. Discharge Instructions: STAY OUT OF THE HEAT FOR THE NEXT SEVERAL DAYS DRINK LOTS OF CLEAR LIQUIDS--EQUAL AMOUNTS OF WATER AND GATORADE--DRINK ENOUGH SO YOU ARE URINATING EVERY 2-3 HOURS WHILE AWAKE TYLENOL AND MOTRIN NEEDED FOR PAIN FOLLOW UP WITH YOUR DR NEEDED. RETURN TO ER IF SYMPTOMS WORSEN All discharge instructions reviewed with patient and/or family. Voiced understanding. Work/School Note: Work Release Form Date Seen in the Emergency Department: Jan 29, 2023 Return to Work: Feb 01, 2023 BERNARDINO REESE MD Jan 29, 2023 17:37 IAN LARRY DO Jan 29, 2023 18:40
[2023-01-29 17:38] LABS: ALBUMIN 4.1 GM/DL (3.2-4.5)
[2023-01-29 17:39] LABS: CALCIUM 9.2 MG/DL (8.5-10.1)
[2023-01-29 17:41] LABS: TOTAL PROTEIN 7.2 GM/DL (6.4-8.2)
[2023-01-29 17:42] LABS: BILIRUBIN,TOTAL 0.6 MG/DL (0.1-1.0)
[2023-01-29 17:44] LABS: CREATININE SERUM 0.84 MG/DL (0.60-1.30)
[2023-01-29 17:47] LABS: MAGNESIUM 1.6 MG/DL (1.6-2.4)
[2023-01-29 18:27] LABS: BACTERIA,URINE NEGATIVE /HPF; BILIRUBIN,URINE NEGATIVE (NEGATIVE); CLARITY,URINE CLEAR; COLOR,URINE YELLOW; GLUCOSE, URINE (UA) NEGATIVE (NEGATIVE); KETONES,URINE 3+ (NEGATIVE); LEUKOCYTE ESTERASE ,URINE NEGATIVE (NEGATIVE); NITRITE,URINE NEGATIVE (NEGATIVE); PROTEIN,URINE TRACE (NEGATIVE)
[2023-01-29 18:35] LABS: CREATINE KINASE MB 1.1 NG/ML (<6.6)
[2023-01-29 18:58] VITALS: BP 137/72
[2023-01-29 19:10] LABS: AMPHETAMINE SCREEN, URINE NEGATIVE (NEGATIVE); BARBITURATE SCREEN URINE NEGATIVE (NEGATIVE); BENZODIAZEPINES SCREEN URINE NEGATIVE (NEGATIVE); CANNABINOID SCREEN, URINE POSITIVE (NEGATIVE); COCAINE SCREEN URINE NEGATIVE (NEGATIVE); METHADONE STAT NEGATIVE (NEGATIVE); OPIATE SCREEN URINE POSITIVE (NEGATIVE); OXYCODONE STAT NEGATIVE (NEGATIVE); PROPOXYPHENE STAT NEGATIVE (NEGATIVE); TRICYCLIC ANTIDEPRESSANTS SCRE NEGATIVE (NEGATIVE)
== END 2023-01-29 18:58 | disposition home or self-care (01) ==
LOC: EDUNIT# 16:56 → ER 16:59
DX: T67.5XXA Heat exhaustion, unspecified, initial encounter (principal); E11.9 Type 2 diabetes mellitus without complications; F11.90 Opioid use, unspecified, uncomplicated; F12.90 Cannabis use, unspecified, uncomplicated; E86.0 Dehydration; F17.210 Nicotine dependence, cigarettes, uncomplicated; Z28.310 Unvaccinated for COVID-19
CPT/HCPCS: 80053; 80306; 81000; 82550; 82553; 82947; 83735; 83874; 85025; 99284; G0480; 36415; 80320

== ENCOUNTER 2023-02-12 04:32 | Emergency (ER) | payer OTHER ==
--- NOTE | 2023-02-12 05:08 | ED General ---
General Chief Complaint: General Problems/Pain Stated Complaint: SHAKING,MIGRAINE,ARMS,WRIST & KNEES PXFUL,DIABETES Source of Information: Patient (IAN LARRY DO) History of Present Illness Date Seen by Provider: Feb 12, 2023 Time Seen by Provider: 04:53 Initial Comments PT ARRIVES VIA POV FROM HOME PT STATES HE HAS BEEN SICK FOR THE LAST 2 DAYS WITH: -MIGRAINE -"SHAKING" -CHILLS--STATES HE HAS BEEN IN HIS BED COVERED UP WITH A SLEEPING BAG AND CAN'T GET WARM AND CAN'T STOP SHAKING. -HURTING ALL OVER--ESPECIALLY HIS WRISTS AND KNEES -NAUSEA, NO VOMITING. HAD DIARRHEA X 5 ON WEDNESDAY NO COUGH OR NASAL CONGESTION NO SHORTNESS OF BREATH NO ABDOMINAL PAIN NO DIFFICULTY URINATING. STATES HE HAS BEEN URINATING ALOT BECAUSE HE HAS BEEN DRINKING ALOT OF WATER INSTEAD OF GATORADE. HE STATES HE HAS BEEN EATING NORMALLY. PT IS NOT COVID OR FLU VACCINATED PT HAS NOT TAKEN ANYTHING FOR SYMPTOMS PT IS DIABETIC. TAKES METFORMIN, GABAPENTIN, AND IBUPROFEN 400 MG TWICE A DAY HE NEVER CHECKS HIS BLOOD SUGAR HE TOOK HIS MEDICATIONS LAST NIGHT AND YESTERDAY MORNING. PT SEEN HERE IN ER 01/29/23 FOR REPORTED HEAT EXHAUSTION. PCP: [facility] (IAN LARRY ) Allergies and Home Medications Allergies Coded Allergies: No Known Drug Allergies (Unverified , 12/21/22) Patient Home Medication List Home Medication List Reviewed: Yes (SULY RAMIRES MD) Cholecalciferol (Vitamin D3) (Vitamin D3) 1 Million Unit/Gram Liquid, 1 ML MC, (Reported) Entered as Reported by: CHRISTI RUTHERFORD on 09/16/22 1228 Gabapentin (Gabapentin) 300 Mg Capsule, 300 MG PO TID, (Reported) Entered as Reported by: CHRIS HALL on 12/18/17 0151 Ibuprofen (Ibuprofen) 800 Mg Tablet, 800 MG PO Q8H PRN for PAIN Prescribed by: IZAIAH WAY on 08/05/19 1124 Metformin Hcl (Metformin 500 Mg) 500 Mg Tablet, 1 EACH PO BID WITH MEALS Prescribed by: RYANN ROJAS on 12/23/14 1251 Sildenafil Citrate (Sildenafil Citrate) 100 Mg Tablet, 100 MG PO UD, (Reported) Entered as Reported by: EMMETT SETH on 12/21/22 1528 Review of Systems Review of Systems Constitutional: see HPI, chills, malaise, weakness EENTM: no symptoms reported Respiratory: no symptoms reported Cardiovascular: no symptoms reported Gastrointestinal: see HPI Genitourinary: see HPI; No dysuria; frequency Musculoskeletal: see HPI Skin: no symptoms reported Psychiatric/Neurological: See HPI Hematologic/Lymphatic: No Symptoms Reported Immunological/Allergic: no symptoms reported (IAN LARRY DO) Past Lagwofy-Utazpz-Qiwncs Hx Patient Social History Tobacco Use?: Yes Tobacco type used: Cigarettes Smoking Status: Current Everyday Smoker Substance use?: No Alcohol Use?: Yes Alcohol Frequency: Once in a while (IAN LARRY ) Immunizations Up To Date Tetanus Booster (TDap): Unknown (LARONIAN Marrero ) Seasonal Allergies Seasonal Allergies: No (LARON,IAN Marrero ) Past Medical History Surgery/Hospitalization HX: DIABETIC TYPE II Surgeries: Yes (COLONOSCOPY) Respiratory: No Currently Using CPAP: No Currently Using BIPAP: No Cardiac: Yes High Cholesterol Neurological: No Reproductive Disorders: Yes (NIGHAT) Genitourinary: No Gastrointestinal: No Musculoskeletal: Yes Chronic Back Pain Endocrine: Yes Diabetes, Non-Insulin dep HEENT: No (EDENTULOUS) Cancer: No Psychosocial: No Integumentary: No Blood Disorders: No (LARONIAN Marrero DO) Family Medical History Cardiovascular disease Diabetes mellitus Myocardial infarction Respiratory disorder CAD Under 55 Years Old 01/29/23--UDS + FOR THC AND OPIATES (LARONIAN Marrero ) Physical Exam Vital Signs Vital Signs - First Documented (SULY RAMIRES MD) Vital Signs Capillary Refill : (IAN LARRY ) Height, Weight, BMI Height: 6'0" Weight: 163lbs. 0oz. [id number]; 21.00 BMI Method:Stated General Appearance: No Apparent Distress, Cachetic, Other (WALKS SLOWLY ; REEKS OF CIGARETTES; UNKEMPT) HEENT: PERRL/EOMI, Other (EDENTULOUS. 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 Norm as Tested Skin: Normal Color, Warm/Dry; No Rash (IAN LARRY DO) Focused Exam Lactate Level 02/12/23 05:55: Lactic Acid Level 0.60 (SULY RAMIRES MD) Lactic Acid Level Laboratory Tests Test 02/12/23 05:55 Lactic Acid Level 0.60 MMOL/L (0.50-2.00) (SULY RAMIRES MD) Progress/Results/Core Measures Suspected Sepsis SIRS Temperature: Pulse: Respiratory Rate: Laboratory Tests 02/12/23 05:55: White Blood Count 12.3H Blood Pressure / Mean: 02/12/23 05:55: Lactic Acid Level 0.60 Laboratory Tests 02/12/23 05:55: Platelet Count 217 (IAN LARRY DO) Results/Orders Lab Results Laboratory Tests Test 02/12/23 04:55 02/12/23 05:55 02/12/23 06:57 Range/Units Influenza Type A (RT-PCR) Not Detected Not Detecte Influenza Type B (RT-PCR) Not Detected Not Detecte SARS-CoV-2 RNA (RT-PCR) Not Detected Not Detecte White Blood Count 12.3 H 4.3-11.0 10^3/uL Red Blood Count 3.85 L 4.30-5.52 10^6/uL Hemoglobin 12.5 L 13.3-17.7 g/dL Hematocrit 37 L 40-54 % Mean Corpuscular Volume 95 80-99 fL Mean Corpuscular Hemoglobin 33 25-34 pg Mean Corpuscular Hemoglobin Concent 34 32-36 g/dL Red Cell Distribution Width 11.9 10.0-14.5 % Platelet Count 217 130-400 10^3/uL Mean Platelet Volume 9.3 9.0-12.2 fL Immature Granulocyte % (Auto) 0 % Neutrophils (%) (Auto) 83 H 42-75 % Lymphocytes (%) (Auto) 9 L 12-44 % Monocytes (%) (Auto) 7 0-12 % Eosinophils (%) (Auto) 1 0-10 % Basophils (%) (Auto) 0 0-10 % Neutrophils # (Auto) 10.2 H 1.8-7.8 10^3/uL Lymphocytes # (Auto) 1.1 1.0-4.0 10^3/uL Monocytes # (Auto) 0.9 0.0-1.0 10^3/uL Eosinophils # (Auto) 0.1 0.0-0.3 10^3/uL Basophils # (Auto) 0.0 0.0-0.1 10^3/uL Immature Granulocyte # (Auto) 0.0 0.0-0.1 10^3/uL Prothrombin Time 13.0 12.2-14.7 SEC INR Comment 1.0 0.8-1.4 Activated Partial Thromboplast Time 31 24-35 SEC Sodium Level 139 135-145 MMOL/L Potassium Level 3.8 3.6-5.0 MMOL/L Chloride Level 104 98-107 MMOL/L Carbon Dioxide Level 25 21-32 MMOL/L Anion Gap 10 5-14 MMOL/L Blood Urea Nitrogen 18 7-18 MG/DL Creatinine 0.84 0.60-1.30 MG/DL Estimat Glomerular Filtration Rate 100 BUN/Creatinine Ratio 21 Glucose Level 165 H 70-105 MG/DL Lactic Acid Level 0.60 0.50-2.00 MMOL/L Calcium Level 9.2 8.5-10.1 MG/DL Corrected Calcium 9.4 8.5-10.1 MG/DL Total Bilirubin 0.7 0.1-1.0 MG/DL Aspartate Amino Transf (AST/SGOT) 12 5-34 U/L Alanine Aminotransferase (ALT/SGPT) 15 0-55 U/L Alkaline Phosphatase 86 40-136 U/L Total Protein 7.2 6.4-8.2 GM/DL Albumin 3.8 3.2-4.5 GM/DL Urine Color YELLOW Urine Clarity CLEAR Urine pH 5.5 5-9 Urine Specific [place] 1.025 H 1.016-1.022 Urine Protein 1+ H NEGATIVE Urine Glucose (UA) NEGATIVE NEGATIVE Urine Ketones 2+ H NEGATIVE Urine Nitrite NEGATIVE NEGATIVE Urine Bilirubin NEGATIVE NEGATIVE Urine Urobilinogen 0.2 < = 1.0 MG/DL Urine Leukocyte Esterase NEGATIVE NEGATIVE Urine RBC (Auto) TRACE H NEGATIVE Urine RBC 0-2 /HPF Urine WBC 0-2 /HPF Urine Crystals NONE /LPF Urine Bacteria NEGATIVE /HPF Urine Casts NONE /LPF Urine Mucus NEGATIVE /LPF Urine Culture Indicated NO (SULY RAMIRES MD) My Orders Orders - SULY RAMIRES MD Ketorolac Injection (Ketorolac Injection (02/12/23 07:03) (SULY RAMIRES MD) Medications Given in ED Current Medications Medications Dose Ordered Sig/William Route Start Time Stop Time Status Last Admin Dose Admin Acetaminophen 1,000 mg ONCE PRN PO 02/12/23 05:45 02/12/23 05:57 DC 02/12/23 05:56 1,000 MG Cefepime HCl 1000 mg/Sodium Chloride 50 ml @ 100 mls/hr ONCE ONCE IV 02/12/23 05:45 02/12/23 06:14 DC 02/12/23 06:00 100 MLS/HR Ondansetron HCl 4 mg ONCE ONCE IVP 02/12/23 06:00 02/12/23 06:01 DC 02/12/23 05:56 4 MG (SULY RAMIRES MD) Vital Signs/I&O 02/12/23 02/12/23 02/12/23 04:49 04:49 05:56 Temp 37.9 37.9 Pulse 95 Resp 16 B/P (MAP) 139/86 (103) Pulse Ox 96 O2 Delivery Room Air Room Air (SULY RAMIRES MD) Vital Signs/I&O Capillary Refill : (IAN LARRY DO) Progress Note : Progress Note VITALS ON ARRIVAL: TEMP 37.9=100.2, HR 93, RR 15, BP 139/86, O2 SAT 96% ON ROOM AIR PPE WORN COVID AND FLU TESTS DONE--BOTH ARE NEGATIVE SEPSIS PROTOCOL INITIATED GIVEN: -IV FLUIDS -CEFEPIME -ZOFRAN -TYLENOL REVIEWED PRIOR RECORDS INCLUDING ER VISITS, ADMITS, TESTS/PROCEDURES 0600--CARE TURNED OVER TO DR. RAMIRES. ALL OTHER STUDIES PENDING AT THIS TIME. (IAN LARRY DO) Progress Note : Progress Note 0630: I did assume care of the patient as noted above. I have reviewed chest x- ray and see no obvious infiltrate on my interpretation. CBC reviewed and does show slightly elevated white count, low hemoglobin but otherwise nonconcerning. CMP reviewed and shows elevated glucose but electrolytes and LFTs are normal. Coags are normal. We are pending UA. Monitor patient. Will be developing: Patient did receive Toradol 15 mg IV. He feels overall better. UA reviewed and shows concentration but otherwise is nonconcerning. Heart rate is in the 70s with blood pressure 121/70 currently. Overall no significant abnormalities. Believe this is overall likely viral syndrome. I did discuss OTC medications follow-up instructions. We also discussed continued management of his diabetes. Discharged home with return precautions. Patient and his brother verbalized understand instructions and agreement with plan. (SULY RAMIRES MD) Diagnostic Imaging Diagonstic Imaging: Xray Plain Films/CT/US/NM/MRI: chest Comments [facility]. [place], [place] NAME: [facility] REC#: [id number] PT STATUS: REG ER : 1960 PHYSICIAN: IAN LARRY DO ADMIT DATE: 02/12/23/ER Draft Date of Exam:02/12/23 CHEST 1 VIEW, AP/PA ONLY INDICATION: Fever AP view of the chest is obtained with comparison made to study of 12/22/2014. FINDINGS: Heart size and pulmonary vascularity are within normal limits, and the lungs are clear, bilaterally. IMPRESSION: Unremarkable chest. Dictated on workstation # [id number] Dict: 02/12/23 0740 Trans: 02/12/23 0741 CV [id number] Interpreted by: COLLINS MCGOWAN MD Electronically signed by: (SULY RAMIRES MD) Departure Impression Primary Impression: Viral illness Additional Impressions: Arthralgia Qualified Codes: M25.50 - Pain in unspecified joint Myalgia Disposition: 01 HOME, SELF-CARE Condition: Stable Departure-Patient Inst. Decision time for Depature: 08:12 (SULY RAMIRES MD) Referrals: JOSE CRUZ BALBUENA DO (PCP/Family) Primary Care Physician Patient Instructions: Viral Syndrome (DC) Add. Discharge Instructions: All discharge instructions reviewed with patient and/or family. Voiced understanding. You may take Tylenol/acetaminophen 1000 mg every 6-8 hours as needed for pain or fever. You may take ibuprofen 400 mg every 8 hours as needed for pain or fever. Drink plenty of fluids and get plenty of rest. Follow-up with your doctor next week for recheck and further evaluation. Discussed referral to cardiology for stress test and further evaluation as well given your family history. Return for worse pain, fever, vomiting, weakness, breathing problems or other concerns as needed. Work/School Note: Work Release Form Date Seen in the Emergency Department: Feb 12, 2023 Return to Work: Feb 14, 2023 Restrictions: No Restrictions Copy Copies To 1: JOSE CRUZ BALBUENA LISA K DO Feb 12, 2023 05:08 SULY RAMIRES MD Feb 12, 2023 06:35
[2023-02-12] MEDS ORDERED: CEFEPIME INJECTION 1,000 MG in NS (IVPB) 50 ML 50 ML IV ONE (05:45)
[2023-02-12] MEDS ORDERED: NS IV 1000 ML 1,000 ML IV SCH (05:45)
[2023-02-12] MEDS ORDERED: ACETAMINOPHEN 500 MG TABLET PO PRN (05:45)
[2023-02-12] MEDS ORDERED: ONDANSETRON 4 MG/2 ML (SDV) Z0FRAN ONE (05:53)
[2023-02-12] MEDS ORDERED: ONDANSETRON 4 MG/2 ML (SDV) Z0FRAN IVP ONE (06:00)
[2023-02-12 06:04] LABS: BASOPHILS % (AUTO) 0 % (0-10); EOSINOPHILS # (AUTO) 0.1 10^3/uL (0.0-0.3); EOSINOPHILS % (AUTO) 1 % (0-10); HEMATOCRIT 37 % (40-54); HEMOGLOBIN 12.5 g/dL (13.3-17.7); LYMPHOCYTES # (AUTO) 1.1 10^3/uL (1.0-4.0); LYMPHOCYTES % (AUTO) 9 % (12-44); MEAN CORPUSCULAR HEMOGLOBIN 33 pg (25-34); MEAN CORPUSCULAR HGB CONC 34 g/dL (32-36); MEAN CORPUSCULAR VOLUME 95 fL (80-99); MEAN PLATELET VOLUME 9.3 fL (9.0-12.2); MONOCYTES # (AUTO) 0.9 10^3/uL (0.0-1.0); MONOCYTES % (AUTO) 7 % (0-12); NEUTROPHILS # (AUTO) 10.2 10^3/uL (1.8-7.8); NEUTROPHILS % (AUTO) 83 % (42-75); PLATELET COUNT 217 10^3/uL (130-400); WHITE BLOOD COUNT 12.3 10^3/uL (4.3-11.0)
[2023-02-12 06:15] LABS: ALBUMIN 3.8 GM/DL (3.2-4.5); POTASSIUM 3.8 MMOL/L (3.6-5.0)
[2023-02-12 06:17] LABS: CALCIUM 9.2 MG/DL (8.5-10.1)
[2023-02-12 06:18] LABS: TOTAL PROTEIN 7.2 GM/DL (6.4-8.2)
[2023-02-12 06:19] LABS: BILIRUBIN,TOTAL 0.7 MG/DL (0.1-1.0)
[2023-02-12 06:21] LABS: CREATININE SERUM 0.84 MG/DL (0.60-1.30)
[2023-02-12] MEDS ORDERED: KETOROLAC INJ 30 MG/ML VIAL IVP STA (07:03)
[2023-02-12 07:19] LABS: CLARITY,URINE CLEAR; COLOR,URINE YELLOW
[2023-02-12 07:20] LABS: BACTERIA,URINE NEGATIVE /HPF; BILIRUBIN,URINE NEGATIVE (NEGATIVE); GLUCOSE, URINE (UA) NEGATIVE (NEGATIVE); KETONES,URINE 2+ (NEGATIVE); LEUKOCYTE ESTERASE ,URINE NEGATIVE (NEGATIVE); NITRITE,URINE NEGATIVE (NEGATIVE); PH,URINE 5.5 (5-9); PROTEIN,URINE 1+ (NEGATIVE); RBC,URINE 0-2 /HPF; WBC,URINE 0-2 /HPF
--- NOTE | 2023-02-12 07:42 | Diagnostic Imaging Report ---
INDICATION: Fever AP view of the chest is obtained with comparison made to study of 12/22/2014. FINDINGS: Heart size and pulmonary vascularity are within normal limits, and the lungs are clear, bilaterally. IMPRESSION: Unremarkable chest. Dictated by: Dictated on workstation # [id number]
[2023-02-12 08:22] VITALS: BP 121/70
== END 2023-02-12 08:22 | disposition home or self-care (01) ==
LOC: EDUNIT# 04:32 → ER 04:36
DX: B34.9 Viral infection, unspecified (principal); M25.50 Pain in unspecified joint; M79.10 Myalgia, unspecified site; D64.9 Anemia, unspecified; R11.0 Nausea; F17.210 Nicotine dependence, cigarettes, uncomplicated; E11.9 Type 2 diabetes mellitus without complications; Z79.84 Long term (current) use of oral hypoglycemic drugs; Z79.899 Other long term (current) drug therapy; Z20.822 Contact with and (suspected) exposure to COVID-19; Z28.310 Unvaccinated for COVID-19
CPT/HCPCS: 36415; 71045; 80053; 81000; 83605; 85025; 85610; 85730; 87040; 87088; 87636